=== PATIENT | female | born 1990 | race Caucasian/White ===

== ENCOUNTER 2018-01-02 20:16 | Emergency (ER) | payer OTHER ==
[~2018-01-02] VITALS: Ht 162.6 cm; Wt 108.9 kg
[~2018-01-02 20:16] MED LIST: ACET500; ALBU90I INH; ALBU90OI; ALBU90OI INH; AMPDEX10 PO; AMPDEX30CR; ARIP30; ARIP30 PO; CIPRO500 MG PO; CLIN300 PO; CODGUAEL PO; CRUTCH3 USE; CRUTCH4 USE; CYCL10 PO; Crutch1 EACH MISC; DIPH50 PO; DOXY100 PO; DULO30 PO; ESCI20; ESCI20 PO; FAMO20; FLUO.05TO TOP; Flagyl500 MG PO; GABA600; GABA600 PO; HYDACE5 PO; IBUP400 PO; IBUP600 PO; KETO10 PO; LORA.5 PO; LORA1; LORA1 PO; MUPI2TC TOP; NAPR500 PO; ONDA4 PO; PERM5TC TOP; PRED10 PO; PRED20 PO; PSEU120ER PO; Pepcid40 MG PO; QUET100 PO; RXHYDACE PO; TRAM50 PO; Ultram50 MG PO; [UNRECOGNIZED DRUG - REMARK]
[2018-01-02] MEDS ORDERED: Monodox100 MG PO (21:44)
== END 2018-01-02 21:57 | disposition home or self-care (01) ==
LOC: ER 20:16
DX: S51.852A Open bite of left forearm, initial encounter (principal); W54.0XXA Bitten by dog, initial encounter; Z88.8 Allergy status to other drugs, medicaments and biological substances; Z88.0 Allergy status to penicillin; Z79.899 Other long term (current) drug therapy; F31.9 Bipolar disorder, unspecified; J45.909 Unspecified asthma, uncomplicated; E11.9 Type 2 diabetes mellitus without complications; I10 Essential (primary) hypertension; F17.210 Nicotine dependence, cigarettes, uncomplicated
CPT/HCPCS: 73090; 99283

== ENCOUNTER 2019-01-27 15:08 | Emergency (ER) | payer OTHER ==
[~2019-01-27 15:08] MED LIST changes: +Monodox100 MG PO
== END 2019-01-27 16:40 | disposition left against medical advice (07) ==
LOC: ER 15:08
DX: Z53.21 Procedure and treatment not carried out due to patient leaving prior to being seen by health care provider (principal)

== ENCOUNTER 2019-11-25 23:12 | Emergency (ER) | payer OTHER ==
[~2019-11-25] VITALS: Ht 162.6 cm; Wt 102.1 kg
[2019-11-25] MEDS ORDERED: Ventolin/Prove6.7 GM INH (23:38)
[2019-11-26] MEDS ORDERED: TRAM50 PO (00:41)
[2019-11-26] MEDS ORDERED: Robaxin-750750 MG PO (00:41)
== END 2019-11-26 00:58 | disposition home or self-care (01) ==
LOC: ER 23:12
DX: S20.212A Contusion of left front wall of thorax, initial encounter (principal); S00.83XA Contusion of other part of head, initial encounter; S50.312A Abrasion of left elbow, initial encounter; F31.9 Bipolar disorder, unspecified; F90.9 Attention-deficit hyperactivity disorder, unspecified type; J45.909 Unspecified asthma, uncomplicated; I10 Essential (primary) hypertension; E11.9 Type 2 diabetes mellitus without complications; Z88.0 Allergy status to penicillin; Z88.8 Allergy status to other drugs, medicaments and biological substances; F17.210 Nicotine dependence, cigarettes, uncomplicated; V00.831A Fall from motorized mobility scooter, initial encounter
CPT/HCPCS: 71046; 99283-25

== ENCOUNTER 2021-11-09 20:36 | Emergency (ER) | payer OTHER ==
[~2021-11-09] VITALS: Ht 162.6 cm; Wt 95.2 kg
[~2021-11-09 20:36] MED LIST changes: +Robaxin-750750 MG PO; +Ventolin/Prove6.7 GM INH
[2021-11-09] MEDS ORDERED: CEPH500 PO (23:02)
[2021-11-09] MEDS ORDERED: SULTRIDS PO (23:02)
== END 2021-11-09 23:35 | disposition home or self-care (01) ==
LOC: ER 20:36
DX: L03.211 Cellulitis of face (principal); E11.9 Type 2 diabetes mellitus without complications; I10 Essential (primary) hypertension; F17.210 Nicotine dependence, cigarettes, uncomplicated; Z79.899 Other long term (current) drug therapy; Z88.0 Allergy status to penicillin
CPT/HCPCS: 70487; 81025; 99284-25; A9270; Q9967

== ENCOUNTER 2022-07-31 21:37 | Emergency (ER) | payer OTHER ==
[~2022-07-31] VITALS: Ht 162.6 cm; Wt 90.7 kg
[~2022-07-31 21:37] MED LIST changes: +CEPH500 PO; +SULTRIDS PO
[2022-08-01] MEDS ORDERED: OXYACE7.5T PO (00:12)
== END 2022-08-01 00:42 | disposition home or self-care (01) ==
LOC: ER 21:37
DX: S06.9X9A Unspecified intracranial injury with loss of consciousness of unspecified duration, initial encounter (principal); S00.83XA Contusion of other part of head, initial encounter; I10 Essential (primary) hypertension; E11.9 Type 2 diabetes mellitus without complications; F17.210 Nicotine dependence, cigarettes, uncomplicated; Y00.XXXA Assault by blunt object, initial encounter; Z88.0 Allergy status to penicillin; Z88.8 Allergy status to other drugs, medicaments and biological substances; Z91.09 Other allergy status, other than to drugs and biological substances; Z79.899 Other long term (current) drug therapy
CPT/HCPCS: 70450; 70486; 72125; 96374; 96375; 99284-25; A9270; J2405; J3010

== ENCOUNTER 2024-03-10 20:46 | Emergency (ER) | payer OTHER ==
[~2024-03-10] VITALS: Ht 172.7 cm; Wt 102.1 kg
[~2024-03-10 20:46] MED LIST changes: +OXYACE7.5T PO
[2024-03-10 21:11] VITALS: BP 131/87
[2024-03-10] MEDS ORDERED: Ondansetron HCl 2 MG / ML 2ML Vial IV ONE (21:15)
[2024-03-10] MEDS ORDERED: NS 1,000 ML IV SCH (21:15)
[2024-03-10 21:29] LABS: BASOPHILS ABSOLUTE AUTO 0.01 K/mm3 (0.00-0.23); BASOPHILS PERCENT AUTO 0 % (0-2); EOSINOPHILS PERCENT AUTO 0 % (0-6); Hematocrit 46.4 % (33.0-51.0); Hemoglobin 15.9 g/dL (11.5-16.0); IMMATURE GRAN ABSOLUTE AUTO 0.03 K/mm3 (0.00-0.10); IMMATURE GRAN PERCENT AUTO 0 % (0-1); LYMPHOCYTES ABSOLUTE AUTO 0.89 K/mm3 (0.84-5.20); LYMPHOCYTES PERCENT AUTO 13 % (21-46); MONOCYTES ABSOLUTE AUTO 0.36 K/mm3 (0.16-1.47); MONOCYTES PERCENT AUTO 5 % (4-13); Mean Corpuscular HGB 30.1 pg (26.0-34.0); Mean Corpuscular HGB Conc 34.3 g/dL (31.5-36.5); Mean Corpuscular Volume 88 fL (80-100); Mean Platelet Volume 9.1 fL (9.1-12.4); NEUTROPHILS ABSOLUTE AUTO 5.72 K/mm3 (1.96-9.15); NEUTROPHILS PERCENT AUTO 82 % (41-73); Platelet Count 239 K/mm3 (150-400); RDW Coefficient Variation 12.8 % (11.7-14.2); RDW Standard Deviation 41.2 fL (35.1-46.3); Red Blood Cell Count 5.29 M/mm3 (3.80-5.20); White Blood Cell Count 7.01 K/mm3 (4.00-11.30)
[2024-03-10 21:53] LABS: Albumin, Blood 3.6 g/dL (3.4-5.0); Albumin/Globulin Ratio 0.9 (0.8-1.8); Bilirubin, Total 0.2 mg/dL (0.1-1.0); Bun/Creatinine Ratio 14.2 (12.0-20.0); Calcium, Blood 8.4 mg/dL (8.5-10.1); Creatinine, Blood 0.77 mg/dL (0.40-1.00); Globulin, Blood 4.1 g/dL (2.2-4.0); Potassium, Blood 3.5 mmol/L (3.5-5.5); Total Protein, Blood 7.7 g/dL (6.4-8.2)
[2024-03-10] MEDS ORDERED: RX Prepack 2 Tabs Ondansetron ODT 4MG UD ONE (22:20)
== END 2024-03-10 22:48 | disposition home or self-care (01) ==
LOC: ER 20:46
PROVIDERS: Physician Assistant
DX: A08.4 Viral intestinal infection, unspecified (principal); I10 Essential (primary) hypertension; E11.9 Type 2 diabetes mellitus without complications; J45.909 Unspecified asthma, uncomplicated; F31.9 Bipolar disorder, unspecified; F17.210 Nicotine dependence, cigarettes, uncomplicated; Z79.899 Other long term (current) drug therapy; Z88.0 Allergy status to penicillin; Z88.8 Allergy status to other drugs, medicaments and biological substances; Z91.048 Other nonmedicinal substance allergy status
CPT/HCPCS: 80053; 85025; A9270; J2405; J7030